=== PATIENT | male | born 1975 | race Caucasian/White ===

== ENCOUNTER 2022-11-05 21:09 | Inpatient (IN) | payer OTHER, MEDICARE ==
[~2022-11-05] VITALS: Ht 170.2 cm; Wt 44.2 kg
[2022-11-05] MEDS ORDERED: NS 1,000 ML IV ONE (21:15)
[2022-11-05 21:33] LABS: ABG BASE EXCESS -4.7 (-2.0-2.0); ABG HCO3 18.9 MMOL/L (22.0-26.0); ABG O2 SATURATION 95.7 % (95.0-99.0); ABG PARTIAL PRESSURE O2 76.6 mmHg (75.0-100.0); ABG STANDARD HCO3 20.6 MMOL/L. (22.0-26.0); ABG TOTAL CO2 19.9 MMOL/L (22.0-29.0); ABG pH (ARTERIAL) 7.404 UNITS (7.350-7.450)
[2022-11-05 21:36] LABS: BASO # 0.1 10^3/uL (0.0-0.2); BASO % 0.6 % (0.0-1.0); EOS # 0.1 10^3/uL (0.0-0.5); EOS % 0.7 % (0.0-3.0); HEMATOCRIT 39.1 % (42.0-52.0); HEMOGLOBIN 12.6 g/dl (13.5-17.5); LYMPH # 1.8 10^3/uL (1.5-5.0); LYMPH % 13.6 % (24.0-44.0); MEAN CORPUSCULAR HEMOGLOBIN 29.2 pg (27.0-33.0); MEAN CORPUSCULAR HGB CONC 32.2 g/dl (32.0-36.5); MEAN CORPUSCULAR VOLUME 90.5 fl (80.0-96.0); MONO # 0.7 10^3/uL (0.0-0.8); MONO % 5.6 % (2.0-8.0); NEUTROPHILS # 10.3 10^3/uL (1.5-8.5); NEUTROPHILS % 78.5 % (36.0-66.0); PLATELET COUNT, AUTOMATED 293 10^3/uL (150-450); RED BLOOD COUNT 4.32 10^6/uL (4.30-6.10); WHITE BLOOD COUNT 13.1 10^3/uL (4.0-10.0)
[2022-11-05 21:48] LABS: INR 1.21; PROTHROMBIN TIME 14.9 SECONDS (12.5-14.5)
[2022-11-05 21:49] LABS: PARTIAL THROMBOPLASTIN TIME 29.6 SECONDS (24.8-34.2)
[2022-11-05 22:02] LABS: APPEARANCE, URINE HAZY (CLEAR); BACTERIA, URINE AUTO NEGATIVE (NEGATIVE); BILIRUBIN, URINE AUTO NEGATIVE (NEGATIVE); BLOOD, URINE BLOOD 1+ (NEGATIVE); COLOR, URINE YELLOW (YELLOW); GLUCOSE, URINE (UA) AUTO NEGATIVE (NEGATIVE); KETONE, URINE AUTO NEGATIVE (NEGATIVE); LEUKOCYTE ESTERASE, URINE AUTO 3+ (NEGATIVE); MUCUS, URINE SMALL (NEGATIVE); NITRITE, URINE AUTO NEGATIVE (NEGATIVE); PROTEIN, URINE AUTO 1+ mg/dL (NEGATIVE); RBC, URINE AUTO 31 /HPF (0-3); SPECIFIC GRAVITY URINE AUTO 1.012 (1.002-1.035); SQUAMOUS EPITHELIAL CELL UR AU 0 /HPF (0-6); UROBILINOGEN, URINE AUTO 0.2 mg/dL (0.0-2.0); WBC, URINE AUTO 70 /HPF (0-3)
[2022-11-05 22:31] LABS: RSV AMPLIFICATION NEGATIVE (NEGATIVE)
[2022-11-05 23:20] LABS: CK-MB VALUE MASS 2.4 NG/ML (<3.6)
[2022-11-05 23:21] LABS: LIPASE 13 U/L (12-53)
[2022-11-05 23:23] LABS: ALBUMIN 1.6 G/DL (3.2-5.2); ALKALINE PHOSPHATASE 104 U/L (46-116); ALT/SGPT 9 U/L (7.0-40); AST/SGOT 9 U/L (<34); BILIRUBIN,DIRECT 0.2 MG/DL (<0.4); BILIRUBIN,TOTAL 0.4 MG/DL (0.3-1.2); BLOOD UREA NITROGEN 86 MG/DL (9-23); CALCIUM LEVEL 7.8 MG/DL (8.5-10.1); CARBON DIOXIDE LEVEL 25 MMOL/L (20-31); CHLORIDE LEVEL 105 MMOL/L (98-107); CPK CREATINE PHOSPHOKINASE 17 U/L (46-171); CREATININE FOR GFR 3.04 MG/DL (0.70-1.30); GLOMERULAR FILTRATION RATE 23.6 (>60); GLUCOSE, FASTING 110 MG/DL (60-100); MB/CK RELATIVE INDEX 14.11 (< OR =4); POTASSIUM SERUM 4.3 MMOL/L (3.5-5.1); SODIUM LEVEL 139 MMOL/L (136-145); TOTAL PROTEIN 5.3 G/DL (5.7-8.2)
[2022-11-05 23:25] LABS: THYROID STIMULATING HORMONE 1.171 uIU/ML (0.55-4.78)
[2022-11-05 23:29] LABS: PROCALCITONIN 0.23 ng/ml
[2022-11-06 00:58] LABS: CK-MB VALUE MASS 2.5 NG/ML (<3.6)
[2022-11-06 00:59] LABS: MB/CK RELATIVE INDEX 16.66 (< OR =4)
[2022-11-06] MEDS ORDERED: ACETAMINOPHEN TAB 650MG DOSE (2X325MG) PO PRN (01:35)
[2022-11-06] MEDS ORDERED: NS 1,000 ML IV SCH (02:00)
[2022-11-06] MEDS ORDERED: GLUCOSE 4GM CHEW TABLET PO PRN (02:10)
[2022-11-06] MEDS ORDERED: ATOR40TA75 PO (02:10)
[2022-11-06] MEDS ORDERED: METO5TAB2 PO (02:10)
[2022-11-06] MEDS ORDERED: TORS20TA2 PO (02:10)
[2022-11-06] MEDS ORDERED: COMBAER6 INH (02:10)
[2022-11-06] MEDS ORDERED: METO25TA PO (02:10)
[2022-11-06] MEDS ORDERED: METO1TAB32 PO (02:10)
[2022-11-06] MEDS ORDERED: LOPE2TAB12 PO (02:10)
[2022-11-06] MEDS ORDERED: ERGO500029 PO (02:10)
[2022-11-06] MEDS ORDERED: DEXTROSE 50% 50ML SYRINGE IV PRN (02:10)
[2022-11-06] MEDS ORDERED: JARD1TAB3 PO (02:10)
[2022-11-06] MEDS ORDERED: SPIR-10 PO (02:10)
[2022-11-06] MEDS ORDERED: SPIR1CAP INH (02:10)
[2022-11-06] MEDS ORDERED: GLUCAGON INJ 1MG VIAL SC PRN (02:10)
[2022-11-06] MEDS ORDERED: MED REC IN PROGRESS XX SCH (02:15)
[2022-11-06 02:32] LABS: HIV 1&2 SCREEN NEGATIVE (NEGATIVE)
[2022-11-06 03:04] LABS: HEMOGLOBIN A1c 5.2 % (4.0-6.0)
[2022-11-06] MEDS ORDERED: HOME MED LIST COMPLETE! XX SCH (06:15)
[2022-11-06 06:31] LABS: BARBITURATES URINE NEGATIVE (NEGATIVE); COCAINE METABOLITE URINE NEGATIVE (NEGATIVE); METHADONE URINE NEGATIVE (NEGATIVE)
[2022-11-06 06:32] LABS: AMPHETAMINES LEVEL URINE NEGATIVE (NEGATIVE); BENZODIAZEPINES URINE NEGATIVE (NEGATIVE); OPIATES URINE NEGATIVE (NEGATIVE); PHENCYCLIDINE URINE NEGATIVE (NEGATIVE)
[2022-11-06 06:42] LABS: CANNABINOIDS URINE POSITIVE (NEGATIVE)
[2022-11-06] MEDS: TIOTROPIUM INHALER/CAPSULE (SPIRIVA) INH SCH (07:22)
[2022-11-06] MEDS: COMBIVENT RESPIMAT 100-20MCG INHALER 4GM INH SCH ×4 (07:22→19:40)
[2022-11-06] MEDS: INSULIN LISPRO (NovoLOG) PER UNIT SC SCH ×4 (07:42→21:00)
[2022-11-06 08:53] LABS: HEMATOCRIT 38.1 % (42.0-52.0); HEMOGLOBIN 12.1 g/dl (13.5-17.5); MEAN CORPUSCULAR HEMOGLOBIN 29.1 pg (27.0-33.0); MEAN CORPUSCULAR HGB CONC 31.8 g/dl (32.0-36.5); MEAN CORPUSCULAR VOLUME 91.6 fl (80.0-96.0); PLATELET COUNT, AUTOMATED 250 10^3/uL (150-450); RED BLOOD COUNT 4.16 10^6/uL (4.30-6.10); WHITE BLOOD COUNT 11.6 10^3/uL (4.0-10.0)
[2022-11-06] MEDS ORDERED: METOPROLOL SUCC *XL* 25MG TAB (TopROL *XL*) PO SCH (09:00)
[2022-11-06 09:14] LABS: CALCIUM LEVEL 7.8 MG/DL (8.5-10.1); CREATININE FOR GFR 2.81 MG/DL (0.70-1.30); GLOMERULAR FILTRATION RATE 25.9 (>60); POTASSIUM SERUM 3.5 MMOL/L (3.5-5.1)
[2022-11-06] MEDS: HEPARIN SOD (PORCINE) 5000UNITS/ML 1ML VIAL/SYRINGE SC SCH ×2 (09:24→20:58)
[2022-11-06] MEDS ORDERED: ONDANSETRON 4MG 2ML VIAL IV PRN (11:30)
[2022-11-06] MEDS: PANTOPRAZOLE 40MG VIAL IV SCH (11:59)
[2022-11-06] MEDS: LR 1,000 ML IV SCH ×2 (11:59→20:58)
[2022-11-06 13:06] VITALS: BP 101/64; TEMP 97.5; O2SAT 100
[2022-11-06] MEDS: METOCLOPRAMIDE 5 MG TAB PO SCH ×2 (14:57→17:58)
[2022-11-06] MEDS: DOXYCYCLINE HYCLATE 100MG TABLET PO SCH ×2 (14:57→20:58)
[2022-11-06 18:00] VITALS: BP 112/74; TEMP 97.3; O2SAT 100
[2022-11-06] MEDS: ATORVASTATIN 20 MG TAB PO SCH (20:57)
[2022-11-06 21:00] VITALS: BP 101/69; TEMP 97.5; O2SAT 100
[2022-11-07] VITALS (9 sets, daily range): BP systolic 88–134; BP diastolic 51–84; TEMP 97.3–98.2; O2SAT 99–100
[2022-11-07] MEDS ORDERED: LACTATED RINGER'S 1000 ML IV ONE (02:00)
[2022-11-07] MEDS: COMBIVENT RESPIMAT 100-20MCG INHALER 4GM INH SCH ×4 (07:25→19:19)
[2022-11-07] MEDS: TIOTROPIUM INHALER/CAPSULE (SPIRIVA) INH SCH (07:25)
[2022-11-07 07:40] LABS: BASO % 0.3 % (0.0-1.0); EOS # 0.1 10^3/uL (0.0-0.5); EOS % 0.9 % (0.0-3.0); HEMATOCRIT 29.2 % (42.0-52.0); LYMPH # 0.9 10^3/uL (1.5-5.0); LYMPH % 8.1 % (24.0-44.0); MEAN CORPUSCULAR HEMOGLOBIN 29.5 pg (27.0-33.0); MEAN CORPUSCULAR HGB CONC 32.2 g/dl (32.0-36.5); MEAN CORPUSCULAR VOLUME 91.5 fl (80.0-96.0); MONO # 0.6 10^3/uL (0.0-0.8); MONO % 4.8 % (2.0-8.0); NEUTROPHILS # 9.9 10^3/uL (1.5-8.5); PLATELET COUNT, AUTOMATED 214 10^3/uL (150-450); RED BLOOD COUNT 3.19 10^6/uL (4.30-6.10); WHITE BLOOD COUNT 11.6 10^3/uL (4.0-10.0)
[2022-11-07 07:52] LABS: HEMOGLOBIN 9.4 g/dl (13.5-17.5)
[2022-11-07 07:55] LABS: MAGNESIUM LEVEL 1.3 MG/DL (1.8-2.4); PHOSPHORUS LEVEL 2.7 MG/DL (2.5-4.9)
[2022-11-07 07:57] LABS: CALCIUM LEVEL 7.5 MG/DL (8.5-10.1); CREATININE FOR GFR 2.35 MG/DL (0.70-1.30); GLOMERULAR FILTRATION RATE 31.8 (>60); POTASSIUM SERUM 3.6 MMOL/L (3.5-5.1)
[2022-11-07 08:47] LABS: C REACTIVE PROTEIN QUANTITATIV 6.2 MG/DL (<1.0)
[2022-11-07] MEDS: METOCLOPRAMIDE 5 MG TAB PO SCH ×3 (09:13→18:22)
[2022-11-07] MEDS: INSULIN LISPRO (NovoLOG) PER UNIT SC SCH ×4 (09:13→21:00)
[2022-11-07 09:38] LABS: PERCENT SATURATION 13.7 % (19.7-50.0)
[2022-11-07 09:40] LABS: FERRITIN 302.2 NG/ML (10.5-307.3); FOLATE 5.14 NG/ML (>5.4)
[2022-11-07] MEDS: PANTOPRAZOLE 40MG VIAL IV SCH (10:27)
[2022-11-07] MEDS: HEPARIN SOD (PORCINE) 5000UNITS/ML 1ML VIAL/SYRINGE SC SCH ×2 (10:27→20:03)
[2022-11-07] MEDS: ASPIRIN 81MG ENTERIC TABLET PO SCH (10:27)
[2022-11-07] MEDS: DOXYCYCLINE HYCLATE 100MG TABLET PO SCH ×2 (10:27→20:03)
[2022-11-07] MEDS: AUGMENTIN 875 MG TAB PO SCH ×2 (11:31→20:03)
[2022-11-07] MEDS: CLOPIDOGREL 75 MG TAB PO SCH (11:31)
[2022-11-07] MEDS: LR 1,000 ML IV SCH ×2 (11:50→13:10)
[2022-11-07] MEDS: MAG SULF 1GM/100ML (MAG RUN) 1 GM in IV 1 EA IV SCH ×4 (11:55→15:30)
[2022-11-07] MEDS: FOLIC ACID 1MG TAB PO SCH (11:56)
[2022-11-07 12:19] LABS: HEMOGLOBIN 10.8 g/dl (13.5-17.5)
[2022-11-07] MEDS: ATORVASTATIN 20 MG TAB PO SCH (20:03)
[2022-11-07] MEDS: METOPROLOL SUCC *XL* 12.5MG PER 1/2 TAB (TopROL *XL*) PO SCH (20:06)
[2022-11-08 05:43] VITALS: BP 90/60; TEMP 97.5; O2SAT 97
[2022-11-08] MEDS: LR 1,000 ML IV SCH (05:45)
[2022-11-08 07:10] LABS: BASO % 0.4 % (0.0-1.0); EOS # 0.2 10^3/uL (0.0-0.5); EOS % 2.1 % (0.0-3.0); HEMOGLOBIN 9.7 g/dl (13.5-17.5); LYMPH # 1.1 10^3/uL (1.5-5.0); LYMPH % 12.6 % (24.0-44.0); MEAN CORPUSCULAR HEMOGLOBIN 29.3 pg (27.0-33.0); MEAN CORPUSCULAR HGB CONC 32.3 g/dl (32.0-36.5); MEAN CORPUSCULAR VOLUME 90.6 fl (80.0-96.0); MONO # 0.6 10^3/uL (0.0-0.8); MONO % 6.2 % (2.0-8.0); NEUTROPHILS # 6.9 10^3/uL (1.5-8.5); NEUTROPHILS % 77.4 % (36.0-66.0); PLATELET COUNT, AUTOMATED 214 10^3/uL (150-450); RED BLOOD COUNT 3.31 10^6/uL (4.30-6.10); WHITE BLOOD COUNT 8.9 10^3/uL (4.0-10.0)
[2022-11-08] MEDS: COMBIVENT RESPIMAT 100-20MCG INHALER 4GM INH SCH ×4 (07:29→20:16)
[2022-11-08] MEDS: TIOTROPIUM INHALER/CAPSULE (SPIRIVA) INH SCH (07:29)
[2022-11-08] MEDS: INSULIN LISPRO (NovoLOG) PER UNIT SC SCH ×4 (07:30→19:54)
[2022-11-08 07:44] LABS: CALCIUM LEVEL 7.4 MG/DL (8.5-10.1); CREATININE FOR GFR 2.05 MG/DL (0.70-1.30); GLOMERULAR FILTRATION RATE 37.2 (>60); POTASSIUM SERUM 3.5 MMOL/L (3.5-5.1)
[2022-11-08 08:49] LABS: MAGNESIUM LEVEL 2.2 MG/DL (1.8-2.4)
[2022-11-08] MEDS: METOCLOPRAMIDE 5 MG TAB PO SCH ×3 (08:52→17:50)
[2022-11-08] MEDS: ASPIRIN 81MG ENTERIC TABLET PO SCH (08:52)
[2022-11-08] MEDS: FOLIC ACID 1MG TAB PO SCH (08:52)
[2022-11-08] MEDS: AUGMENTIN 875 MG TAB PO SCH ×2 (08:52→20:23)
[2022-11-08] MEDS: DOXYCYCLINE HYCLATE 100MG TABLET PO SCH ×2 (08:53→20:24)
[2022-11-08] MEDS: PANTOPRAZOLE 40MG VIAL IV SCH (08:53)
[2022-11-08] MEDS: CLOPIDOGREL 75 MG TAB PO SCH (08:53)
[2022-11-08] MEDS: HEPARIN SOD (PORCINE) 5000UNITS/ML 1ML VIAL/SYRINGE SC SCH ×2 (08:53→20:24)
[2022-11-08 09:50] VITALS: BP 96/62; TEMP 97.3; O2SAT 100
[2022-11-08] MEDS: LOPERAMIDE 2 MG CAPLET PO PRN ×2 (10:27→13:31)
[2022-11-08 14:00] VITALS: BP 98/60; TEMP 98.1; O2SAT 98
[2022-11-08 19:31] VITALS: BP 138/78; TEMP 97.9; O2SAT 100
[2022-11-08] MEDS: METOPROLOL SUCC *XL* 12.5MG PER 1/2 TAB (TopROL *XL*) PO SCH (20:23)
[2022-11-08] MEDS: ATORVASTATIN 20 MG TAB PO SCH (20:24)
[2022-11-09 02:30] VITALS: BP 118/60; TEMP 98.1; O2SAT 98
[2022-11-09 05:30] VITALS: BP 122/74; TEMP 98.1; O2SAT 99
[2022-11-09 06:35] LABS: BASO # 0.1 10^3/uL (0.0-0.2); BASO % 0.7 % (0.0-1.0); EOS # 0.1 10^3/uL (0.0-0.5); EOS % 1.6 % (0.0-3.0); HEMATOCRIT 32.4 % (42.0-52.0); HEMOGLOBIN 10.3 g/dl (13.5-17.5); LYMPH % 11.5 % (24.0-44.0); MEAN CORPUSCULAR HEMOGLOBIN 29.1 pg (27.0-33.0); MEAN CORPUSCULAR HGB CONC 31.8 g/dl (32.0-36.5); MEAN CORPUSCULAR VOLUME 91.5 fl (80.0-96.0); MONO # 0.4 10^3/uL (0.0-0.8); MONO % 4.9 % (2.0-8.0); NEUTROPHILS % 79.6 % (36.0-66.0); PLATELET COUNT, AUTOMATED 231 10^3/uL (150-450); RED BLOOD COUNT 3.54 10^6/uL (4.30-6.10); WHITE BLOOD COUNT 8.8 10^3/uL (4.0-10.0)
[2022-11-09 07:11] LABS: CALCIUM LEVEL 7.5 MG/DL (8.5-10.1); CREATININE FOR GFR 1.93 MG/DL (0.70-1.30); GLOMERULAR FILTRATION RATE 39.9 (>60); POTASSIUM SERUM 3.7 MMOL/L (3.5-5.1)
[2022-11-09] MEDS: INSULIN LISPRO (NovoLOG) PER UNIT SC SCH ×4 (07:28→20:42)
[2022-11-09] MEDS: TIOTROPIUM INHALER/CAPSULE (SPIRIVA) INH SCH (07:30)
[2022-11-09] MEDS: COMBIVENT RESPIMAT 100-20MCG INHALER 4GM INH SCH ×2 (07:30→11:34)
[2022-11-09] MEDS: LACTOBACILLUS ACIDOPHILUS CAP (BACID) PO SCH ×2 (08:00→17:06)
[2022-11-09] MEDS ORDERED: METAMUCIL (PSYLLIUM) PACKET PO SCH (09:00)
[2022-11-09] MEDS: METOCLOPRAMIDE 5 MG TAB PO SCH ×3 (09:37→17:06)
[2022-11-09] MEDS: DOXYCYCLINE HYCLATE 100MG TABLET PO SCH ×2 (09:37→21:00)
[2022-11-09] MEDS: ASPIRIN 81MG ENTERIC TABLET PO SCH (09:37)
[2022-11-09] MEDS: FOLIC ACID 1MG TAB PO SCH (09:37)
[2022-11-09] MEDS: AUGMENTIN 875 MG TAB PO SCH ×2 (09:37→21:00)
[2022-11-09] MEDS: CLOPIDOGREL 75 MG TAB PO SCH (09:38)
[2022-11-09] MEDS: PANTOPRAZOLE 40MG VIAL IV SCH (09:38)
[2022-11-09] MEDS: HEPARIN SOD (PORCINE) 5000UNITS/ML 1ML VIAL/SYRINGE SC SCH ×2 (09:38→21:01)
[2022-11-09 10:00] VITALS: BP 110/78; TEMP 97.5; O2SAT 100
[2022-11-09] MEDS: METAMUCIL (PSYLLIUM) PACKET PO SCH ×2 (11:52→21:00)
[2022-11-09] MEDS: LR 1,000 ML IV SCH ×3 (11:52→21:00)
[2022-11-09] MEDS ORDERED: COMBIVENT RESPIMAT 100-20MCG INHALER 4GM INH PRN (12:55)
[2022-11-09 14:00] VITALS: BP 118/76; TEMP 97.5; O2SAT 99
[2022-11-09] MEDS ORDERED: POTASSIUM CHLORIDE 10MEQ SR TABLET PO ONE (14:00)
[2022-11-09 18:00] VITALS: BP 140/88; TEMP 97.5; O2SAT 100
[2022-11-09 19:52] VITALS: BP 104/62; TEMP 98.1; O2SAT 100
[2022-11-09] MEDS: ATORVASTATIN 20 MG TAB PO SCH (21:00)
[2022-11-09] MEDS: METOPROLOL SUCC *XL* 12.5MG PER 1/2 TAB (TopROL *XL*) PO SCH (21:00)
[2022-11-10] VITALS (12 sets, daily range): BP systolic 73–118; BP diastolic 47–88; TEMP 97.5–97.9; O2SAT 100
[2022-11-10] MEDS: LR 1,000 ML IV SCH ×2 (05:09→18:10)
[2022-11-10 06:34] LABS: BASO # 0.1 10^3/uL (0.0-0.2); BASO % 0.6 % (0.0-1.0); EOS # 0.2 10^3/uL (0.0-0.5); HEMATOCRIT 32.4 % (42.0-52.0); HEMOGLOBIN 10.3 g/dl (13.5-17.5); LYMPH # 1.1 10^3/uL (1.5-5.0); LYMPH % 10.3 % (24.0-44.0); MEAN CORPUSCULAR HEMOGLOBIN 29.4 pg (27.0-33.0); MEAN CORPUSCULAR HGB CONC 31.8 g/dl (32.0-36.5); MEAN CORPUSCULAR VOLUME 92.6 fl (80.0-96.0); MONO # 0.7 10^3/uL (0.0-0.8); MONO % 6.7 % (2.0-8.0); NEUTROPHILS # 8.5 10^3/uL (1.5-8.5); NEUTROPHILS % 79.4 % (36.0-66.0); PLATELET COUNT, AUTOMATED 215 10^3/uL (150-450); WHITE BLOOD COUNT 10.7 10^3/uL (4.0-10.0)
[2022-11-10 06:55] LABS: CALCIUM LEVEL 7.3 MG/DL (8.5-10.1); CREATININE FOR GFR 1.81 MG/DL (0.70-1.30); MAGNESIUM LEVEL 1.7 MG/DL (1.8-2.4); POTASSIUM SERUM 4.5 MMOL/L (3.5-5.1)
[2022-11-10] MEDS: INSULIN LISPRO (NovoLOG) PER UNIT SC SCH ×4 (07:15→21:00)
[2022-11-10] MEDS: TIOTROPIUM INHALER/CAPSULE (SPIRIVA) INH SCH (07:19)
[2022-11-10] MEDS: METOCLOPRAMIDE 5 MG TAB PO SCH ×3 (07:40→17:00)
[2022-11-10] MEDS: LACTOBACILLUS ACIDOPHILUS CAP (BACID) PO SCH ×2 (07:40→17:00)
[2022-11-10 08:26] LABS: PROCALCITONIN 0.13 ng/ml
[2022-11-10] MEDS: ASPIRIN 81MG ENTERIC TABLET PO SCH (08:45)
[2022-11-10] MEDS: METAMUCIL (PSYLLIUM) PACKET PO SCH ×2 (08:45→20:22)
[2022-11-10] MEDS: DOXYCYCLINE HYCLATE 100MG TABLET PO SCH ×2 (08:46→20:23)
[2022-11-10] MEDS: AUGMENTIN 875 MG TAB PO SCH ×2 (08:46→20:23)
[2022-11-10] MEDS: LOPERAMIDE 2 MG CAPLET PO SCH ×4 (08:46→20:22)
[2022-11-10] MEDS: FOLIC ACID 1MG TAB PO SCH (08:46)
[2022-11-10] MEDS: MAGNESIUM OXIDE 400MG TAB (MAG-OX) PO SCH ×2 (08:46→20:22)
[2022-11-10] MEDS: CLOPIDOGREL 75 MG TAB PO SCH (08:46)
[2022-11-10] MEDS: HEPARIN SOD (PORCINE) 5000UNITS/ML 1ML VIAL/SYRINGE SC SCH ×2 (08:47→20:24)
[2022-11-10] MEDS ORDERED: MAG SULF 1GM/100ML (MAG RUN) 1 GM in IV 1 EA IV ONE (09:00)
[2022-11-10] MEDS: METOPROLOL SUCC *XL* 12.5MG PER 1/2 TAB (TopROL *XL*) PO SCH (20:23)
[2022-11-10] MEDS: ATORVASTATIN 20 MG TAB PO SCH (20:24)
[2022-11-11 01:30] VITALS: BP 82/58; TEMP 98.2; O2SAT 100
[2022-11-11 05:00] VITALS: BP 86/58; TEMP 98.1; O2SAT 100
[2022-11-11 06:26] LABS: BASO # 0.1 10^3/uL (0.0-0.2); BASO % 0.6 % (0.0-1.0); EOS # 0.3 10^3/uL (0.0-0.5); EOS % 2.8 % (0.0-3.0); HEMATOCRIT 30.4 % (42.0-52.0); HEMOGLOBIN 9.7 g/dl (13.5-17.5); LYMPH # 1.2 10^3/uL (1.5-5.0); LYMPH % 13.7 % (24.0-44.0); MEAN CORPUSCULAR HEMOGLOBIN 29.3 pg (27.0-33.0); MEAN CORPUSCULAR HGB CONC 31.9 g/dl (32.0-36.5); MEAN CORPUSCULAR VOLUME 91.8 fl (80.0-96.0); MONO # 0.7 10^3/uL (0.0-0.8); MONO % 7.3 % (2.0-8.0); NEUTROPHILS # 6.7 10^3/uL (1.5-8.5); NEUTROPHILS % 74.5 % (36.0-66.0); PLATELET COUNT, AUTOMATED 197 10^3/uL (150-450); RED BLOOD COUNT 3.31 10^6/uL (4.30-6.10); WHITE BLOOD COUNT 8.9 10^3/uL (4.0-10.0)
[2022-11-11 06:51] LABS: CALCIUM LEVEL 7.2 MG/DL (8.5-10.1); CREATININE FOR GFR 1.78 MG/DL (0.70-1.30); GLOMERULAR FILTRATION RATE 43.8 (>60); POTASSIUM SERUM 4.7 MMOL/L (3.5-5.1)
[2022-11-11] MEDS: INSULIN LISPRO (NovoLOG) PER UNIT SC SCH ×2 (07:30→11:31)
[2022-11-11] MEDS: TIOTROPIUM INHALER/CAPSULE (SPIRIVA) INH SCH (07:36)
[2022-11-11] MEDS: LOPERAMIDE 2 MG CAPLET PO SCH ×2 (08:00→12:42)
[2022-11-11] MEDS: METAMUCIL (PSYLLIUM) PACKET PO SCH (08:00)
[2022-11-11] MEDS: LACTOBACILLUS ACIDOPHILUS CAP (BACID) PO SCH (08:00)
[2022-11-11] MEDS: CLOPIDOGREL 75 MG TAB PO SCH (08:00)
[2022-11-11] MEDS: ASPIRIN 81MG ENTERIC TABLET PO SCH (08:00)
[2022-11-11] MEDS: MAGNESIUM OXIDE 400MG TAB (MAG-OX) PO SCH (08:00)
[2022-11-11] MEDS: AUGMENTIN 875 MG TAB PO SCH (08:00)
[2022-11-11] MEDS: HEPARIN SOD (PORCINE) 5000UNITS/ML 1ML VIAL/SYRINGE SC SCH (08:00)
[2022-11-11] MEDS: FOLIC ACID 1MG TAB PO SCH (08:00)
[2022-11-11] MEDS: METOCLOPRAMIDE 5 MG TAB PO SCH ×2 (08:00→12:42)
[2022-11-11] MEDS: DOXYCYCLINE HYCLATE 100MG TABLET PO SCH (08:00)
[2022-11-11] MEDS ORDERED: ASPI81TAEC PO (09:07)
[2022-11-11] MEDS ORDERED: AMOX875T2 PO (09:07)
[2022-11-11] MEDS ORDERED: META1POW PO (09:07)
[2022-11-11] MEDS ORDERED: CLOP75TA2 PO (09:07)
[2022-11-11] MEDS ORDERED: RISATAB3 PO (09:07)
[2022-11-11] MEDS ORDERED: MAGN400T2 PO (09:07)
[2022-11-11 10:00] VITALS: BP 101/61; TEMP 97.9; O2SAT 96
[2022-11-11] MEDS ORDERED: JARD1TAB PO (10:11)
[2022-11-12 13:07] LABS: BODY FLUID CULTURE Not indicated. (.); LEGIONELLA ANTIGEN URINE Negative (Negative); ORGANISM ID Not indicated. (.); SPECIMEN SOURCE Urine (.); URINE STREP PNEUMONIAE ANTIGEN Negative (Negative)
== END 2022-11-11 14:43 | disposition home health service (06) | DRG 952 ==
LOC: M ED 21:09 → M ED INP 11-06 02:09 → ENRESERV 11-06 11:42 → M MSPAV 11-06 13:08
PROVIDERS: ADMIT Internal Medicine; ATTEND Internal Medicine
PROC: 0JBQ3ZZ Excision of Right Foot Subcutaneous Tissue and Fascia, Percutaneous Approach (ICD-10-PCS; principal; 2022-11-06)
DX: T87.53 Necrosis of amputation stump, right lower extremity (principal); I13.0 Hypertensive heart and chronic kidney disease with heart failure and stage 1 through stage 4 chronic kidney disease, or unspecified chronic kidney disease; J90 Pleural effusion, not elsewhere classified; K31.84 Gastroparesis; R64 Cachexia; E11.52 Type 2 diabetes mellitus with diabetic peripheral angiopathy with gangrene; E46 Unspecified protein-calorie malnutrition; N17.9 Acute kidney failure, unspecified; E11.43 Type 2 diabetes mellitus with diabetic autonomic (poly)neuropathy; I50.32 Chronic diastolic (congestive) heart failure; L89.302 Pressure ulcer of unspecified buttock, stage 2; N18.30 Chronic kidney disease, stage 3 unspecified; E11.22 Type 2 diabetes mellitus with diabetic chronic kidney disease; E11.69 Type 2 diabetes mellitus with other specified complication; E83.42 Hypomagnesemia; E87.20 Acidosis, unspecified; E78.5 Hyperlipidemia, unspecified; E86.0 Dehydration; I25.10 Atherosclerotic heart disease of native coronary artery without angina pectoris; J44.9 Chronic obstructive pulmonary disease, unspecified; J98.11 Atelectasis; K21.9 Gastro-esophageal reflux disease without esophagitis; K80.20 Calculus of gallbladder without cholecystitis without obstruction; R33.9 Retention of urine, unspecified; R62.7 Adult failure to thrive; Z95.1 Presence of aortocoronary bypass graft; T87.43 Infection of amputation stump, right lower extremity; T87.81 Dehiscence of amputation stump; M86.8X7 Other osteomyelitis, ankle and foot; R19.7 Diarrhea, unspecified; Z68.1 Body mass index [BMI] 19.9 or less, adult; Z87.891 Personal history of nicotine dependence; Y83.5 Amputation of limb(s) as the cause of abnormal reaction of the patient, or of later complication, without mention of misadventure at the time of the procedure

== ENCOUNTER 2022-12-25 23:06 | Inpatient (IN) | payer MEDICARE, OTHER ==
[~2022-12-25] VITALS: Ht 170.2 cm; Wt 62.8 kg
[~2022-12-25 23:06] MED LIST: AMOX875T2 PO; ASPI81TAEC PO; ATOR40TA75 PO; CLOP75TA2 PO; COMBAER6 INH; ERGO500029 PO; JARD1TAB PO; JARD1TAB3 PO; LOPE2TAB12 PO; MAGN400T2 PO; META1POW PO; METO1TAB32 PO; METO25TA PO; METO5TAB2 PO; RISATAB3 PO; SPIR-10 PO; SPIR1CAP INH; TORS20TA2 PO
[2022-12-25] MEDS ORDERED: EPINEPHrine 1MG/10ML SYRINGE 1.5IN As Ordered ONE (23:13)
[2022-12-25] MEDS ORDERED: MIDAZOLAM INJ 2MG/2ML VIAL IV ONE (23:15)
[2022-12-25] MEDS ORDERED: MIDAZOLAM 100MG/100ML-0.9%NACL 100 MG in IV 1 EA IV SCH (23:15)
[2022-12-25] MEDS ORDERED: ROCURONIUM BROMIDE 50MG/5ML VIAL IV ONE (23:15)
[2022-12-25] MEDS ORDERED: NS 1,000 ML IV ONE (23:20)
[2022-12-25] MEDS: NOREPINEPHRINE 4MG IN D5 250ML 4 MG in IV 1 EA IV SCH ×2 (23:28)
[2022-12-26] VITALS (41 sets, daily range): BP systolic 70–140; BP diastolic 46–93; TEMP 95.1–100; O2SAT 91–100
[2022-12-26 00:18] LABS: HEMOGLOBIN 9.3 g/dl (13.5-17.5); MEAN CORPUSCULAR HEMOGLOBIN 29.1 pg (27.0-33.0); MEAN CORPUSCULAR VOLUME 96.9 fl (80.0-96.0); PLATELET COUNT, AUTOMATED 331 10^3/uL (150-450); WHITE BLOOD COUNT 12.4 10^3/uL (4.0-10.0)
[2022-12-26 00:28] LABS: ABG BASE EXCESS -16.7 (-2.0-2.0); ABG HCO3 12.6 MMOL/L (22.0-26.0); ABG PARTIAL PRESSURE CO2 44.3 mmHg (35.0-45.0); ABG PARTIAL PRESSURE O2 200.8 mmHg (75.0-100.0); ABG STANDARD HCO3 11.7 MMOL/L. (22.0-26.0)
[2022-12-26 00:31] LABS: ABG pH (ARTERIAL) 7.072 UNITS (7.350-7.450)
[2022-12-26 00:33] LABS: LIPASE 13 U/L (12-53)
[2022-12-26 00:34] LABS: CK-MB VALUE MASS 9.9 NG/ML (<3.6)
[2022-12-26 00:35] LABS: ALBUMIN 1.2 G/DL (3.2-5.2); ALKALINE PHOSPHATASE 149 U/L (46-116); ALT/SGPT 19 U/L (7.0-40); AST/SGOT 43 U/L (<34); BILIRUBIN,DIRECT < 0.1 MG/DL (<0.4); BILIRUBIN,TOTAL 0.2 MG/DL (0.3-1.2); BLOOD UREA NITROGEN 34 MG/DL (9-23); CALCIUM LEVEL 7.1 MG/DL (8.5-10.1); CARBON DIOXIDE LEVEL 12 MMOL/L (20-31); CHLORIDE LEVEL 116 MMOL/L (98-107); CREATININE FOR GFR 1.68 MG/DL (0.70-1.30); GLOMERULAR FILTRATION RATE 46.9 (>60); GLUCOSE, FASTING 184 MG/DL (60-100); POTASSIUM SERUM 4.2 MMOL/L (3.5-5.1); SODIUM LEVEL 143 MMOL/L (136-145); TOTAL PROTEIN 5.1 G/DL (5.7-8.2)
[2022-12-26 00:40] LABS: INR 1.43
[2022-12-26 00:41] LABS: PARTIAL THROMBOPLASTIN TIME 38.5 SECONDS (24.8-34.2)
[2022-12-26 00:42] LABS: CPK CREATINE PHOSPHOKINASE 67 U/L (46-171); MB/CK RELATIVE INDEX 14.77 (< OR =4)
[2022-12-26] MEDS ORDERED: PIPERACILLIN/TAZOBACTAM SOD 4.5 GM in D5W MINI-BAG PLUS 50 ML IV ONE (00:55)
[2022-12-26] MEDS ORDERED: ISOVUE-370 76% 100ML VIAL As Ordered ONE (01:09)
[2022-12-26 01:11] LABS: EOSINOPHILS 1 % (0-3); LYMPHOCYTES 5 % (16-44); METAMYELOCYTES 3 % (0-0); MONOCYTES 2 % (0-5); MYELOCYTES 1 % (0-0); NEUTROPHILS 82 % (28-66)
[2022-12-26 01:12] LABS: PLATELET ESTIMATE NORMAL (NORMAL)
[2022-12-26] MEDS ORDERED: NS 1,000 ML in IV 1 EA IV ONE (02:10)
[2022-12-26] MEDS: NOREPINEPHRINE 4MG IN D5 250ML 4 MG in IV 1 EA IV SCH ×6 (02:38→11:26)
[2022-12-26 03:03] LABS: MAGNESIUM LEVEL 1.7 MG/DL (1.8-2.4)
[2022-12-26] MEDS ORDERED: MED REC CURRENTLY UNOBTAINABLE XX SCH (04:00)
[2022-12-26 04:02] LABS: CK-MB VALUE MASS 13.1 NG/ML (<3.6)
[2022-12-26 04:05] LABS: MB/CK RELATIVE INDEX 16.58 (< OR =4)
[2022-12-26] MEDS ORDERED: GLUCAGON INJ 1MG VIAL SC PRN (04:20)
[2022-12-26] MEDS ORDERED: propofoL 1,000 MG in IV 1 EA IV SCH (04:20)
[2022-12-26] MEDS ORDERED: GLUCOSE 4GM CHEW TABLET PO PRN (04:20)
[2022-12-26] MEDS ORDERED: DEXTROSE 50% 50ML SYRINGE IV PRN (04:20)
[2022-12-26] MEDS ORDERED: LR 1,000 ML IV SCH (04:40)
[2022-12-26 05:33] LABS: PROCALCITONIN 0.45 ng/ml
[2022-12-26 06:03] LABS: HEMATOCRIT 32.4 % (42.0-52.0); HEMOGLOBIN 9.9 g/dl (13.5-17.5); MEAN CORPUSCULAR HEMOGLOBIN 28.4 pg (27.0-33.0); MEAN CORPUSCULAR HGB CONC 30.6 g/dl (32.0-36.5); MEAN CORPUSCULAR VOLUME 92.8 fl (80.0-96.0); PLATELET COUNT, AUTOMATED 410 10^3/uL (150-450); RED BLOOD COUNT 3.49 10^6/uL (4.30-6.10); WHITE BLOOD COUNT 20.3 10^3/uL (4.0-10.0)
[2022-12-26 06:24] LABS: VENOUS BASE EXCESS -18.3 (-2.0-2.0); VENOUS HCO3 11.1 MMOL/L (23.0-27.0); VENOUS O2 SATURATION 96.6 % (60.0-80.0); VENOUS PARTIAL PRESSURE O2 103.4 mmHg (30.0-50.0); VENOUS PH 7.063 UNITS (7.330-7.430); VENOUS STANDARD HCO3 10.8 MMOL/L; VENOUS TOTAL CO2 12.4 MMOL/L (24.0-28.0)
[2022-12-26 06:27] LABS: ALBUMIN 1.1 G/DL (3.2-5.2); BILIRUBIN,TOTAL 0.3 MG/DL (0.3-1.2); CALCIUM LEVEL 7.2 MG/DL (8.5-10.1); CREATININE FOR GFR 1.75 MG/DL (0.70-1.30); GLOMERULAR FILTRATION RATE 44.7 (>60); POTASSIUM SERUM 3.4 MMOL/L (3.5-5.1)
[2022-12-26] MEDS: IPRATROPIUM 0.5MG/ALBUTEROL 2.5MG INH SOL UD 3ML (DUONEB) NEB SCH ×3 (08:00→20:04)
[2022-12-26] MEDS: PIPERACILLIN/TAZOBACTAM SOD 4.5 GM in D5W MINI-BAG PLUS 50 ML IV SCH ×3 (09:24→19:40)
[2022-12-26] MEDS: INSULIN LISPRO (NovoLOG) PER UNIT SC SCH ×3 (09:25→17:59)
[2022-12-26] MEDS: HEPARIN SOD (PORCINE) 5000UNITS/ML 1ML VIAL/SYRINGE SC SCH ×3 (09:26→22:15)
[2022-12-26] MEDS: KCL 20MEQ IN 100ML SWI (KRUN) 20 MEQ in IV 1 EA IV SCH ×6 (09:27→11:39)
[2022-12-26] MEDS: PANTOPRAZOLE 40MG VIAL IV SCH (09:27)
[2022-12-26 09:42] LABS: CK-MB VALUE MASS 19.5 NG/ML (<3.6)
[2022-12-26 09:46] LABS: MB/CK RELATIVE INDEX 21.91 (< OR =4)
[2022-12-26 10:07] LABS: ABG BASE EXCESS -15.3 (-2.0-2.0); ABG HCO3 10.8 MMOL/L (22.0-26.0); ABG O2 SATURATION 94.9 % (95.0-99.0); ABG PARTIAL PRESSURE CO2 26.7 mmHg (35.0-45.0); ABG PARTIAL PRESSURE O2 75.9 mmHg (75.0-100.0); ABG STANDARD HCO3 12.6 MMOL/L. (22.0-26.0); ABG TOTAL CO2 11.6 MMOL/L (22.0-29.0)
[2022-12-26 10:11] LABS: ABG pH (ARTERIAL) 7.225 UNITS (7.350-7.450)
[2022-12-26] MEDS ORDERED: ASPI-161 PO (11:24)
[2022-12-26] MEDS ORDERED: LOSA25TA13 PO (11:24)
[2022-12-26] MEDS ORDERED: ZINC220CA PO (11:24)
[2022-12-26] MEDS ORDERED: JARD1TAB PO (11:24)
[2022-12-26] MEDS ORDERED: CLOP75TA2 PO (11:24)
[2022-12-26] MEDS ORDERED: MAGN400C PO (11:28)
[2022-12-26] MEDS ORDERED: TORS20TA2 PO (11:28)
[2022-12-26] MEDS ORDERED: META1POW PO (11:28)
[2022-12-26] MEDS ORDERED: HOME MED LIST COMPLETE! XX SCH (11:30)
[2022-12-26] MEDS ORDERED: SODIUM BICARBONATE 75 MEQ in NS 0.45% 1,000 ML IV SCH (12:00)
[2022-12-26 14:57] LABS: ALBUMIN 1.1 G/DL (3.2-5.2); BILIRUBIN,TOTAL 0.2 MG/DL (0.3-1.2); CALCIUM LEVEL 7.2 MG/DL (8.5-10.1); CREATININE FOR GFR 1.81 MG/DL (0.70-1.30); POTASSIUM SERUM 4.6 MMOL/L (3.5-5.1); TOTAL PROTEIN 5.1 G/DL (5.7-8.2)
[2022-12-26] MEDS ORDERED: SODIUM BICARBONATE 8.4% INJ 50ML SYRINGE As Ordered ONE (15:36)
[2022-12-26] MEDS ORDERED: SODIUM BICARBONATE 8.4% INJ 50ML SYRINGE IV STA ×3 (15:37)
[2022-12-26] MEDS ORDERED: VASOPRESSIN INJ 20UNITS/ML 1ML VIAL As Ordered ONE (15:40)
[2022-12-26 15:50] LABS: VENOUS BASE EXCESS -11.5 (-2.0-2.0); VENOUS HCO3 14.9 MMOL/L (23.0-27.0); VENOUS O2 SATURATION 98.3 % (60.0-80.0); VENOUS PARTIAL PRESSURE CO2 35.7 mmHg (38.0-50.0); VENOUS PARTIAL PRESSURE O2 130.6 mmHg (30.0-50.0); VENOUS PH 7.239 UNITS (7.330-7.430); VENOUS STANDARD HCO3 15.3 MMOL/L
[2022-12-26] MEDS ORDERED: VASOPRESSIN INJ 20 UNITS in NS 499 ML IV SCH (16:00)
[2022-12-26] MEDS: LACRILUBE (AKWA TEARS) OPHTH OINT 3.5GM OU SCH ×2 (16:00→22:15)
[2022-12-26 16:27] LABS: ALBUMIN 1.2 G/DL (3.2-5.2); BILIRUBIN,TOTAL 0.3 MG/DL (0.3-1.2); CALCIUM LEVEL 6.9 MG/DL (8.5-10.1); CREATININE FOR GFR 1.82 MG/DL (0.70-1.30); GLOMERULAR FILTRATION RATE 42.7 (>60); POTASSIUM SERUM 4.8 MMOL/L (3.5-5.1); TOTAL PROTEIN 5.1 G/DL (5.7-8.2)
[2022-12-26] MEDS ORDERED: CALCIUM GLUCONATE 1,000 MG in D5W MINI-BAG PLUS 100 ML IV ONE (17:00)
[2022-12-26 17:51] LABS: MAGNESIUM LEVEL 1.3 MG/DL (1.8-2.4)
[2022-12-26] MEDS: SODIUM BICARBONATE 75 MEQ in NS 0.45% 1,000 ML IV SCH (18:40)
[2022-12-26] MEDS ORDERED: MIDAZOLAM INJ 2MG/2ML VIAL IV PRN (18:45)
[2022-12-26] MEDS ORDERED: MAG SULF 1GM/100ML (MAG RUN) 1 GM in IV 1 EA IV ONE ×2 (19:00→22:50)
[2022-12-26 22:40] LABS: BILIRUBIN,TOTAL 0.3 MG/DL (0.3-1.2); CREATININE FOR GFR 1.84 MG/DL (0.70-1.30); GLOMERULAR FILTRATION RATE 42.2 (>60); MAGNESIUM LEVEL 1.6 MG/DL (1.8-2.4); POTASSIUM SERUM 4.5 MMOL/L (3.5-5.1); TOTAL PROTEIN 4.7 G/DL (5.7-8.2)
[2022-12-26] MEDS: MAG SULF 1GM/100ML (MAG RUN) 1 GM in IV 1 EA IV SCH (23:05)
[2022-12-26] MEDS: VASOPRESSIN INJ 20 UNITS in NS 499 ML IV SCH (23:36)
[2022-12-27] VITALS (81 sets, daily range): BP systolic 50–204; BP diastolic 23–111; TEMP 98.8–99.7; O2SAT 81–100
[2022-12-27] MEDS: NOREPINEPHRINE 4MG IN D5 250ML 4 MG in IV 1 EA IV SCH ×8 (00:02→11:10)
[2022-12-27] MEDS: MAG SULF 1GM/100ML (MAG RUN) 1 GM in IV 1 EA IV SCH ×2 (00:08→01:13)
[2022-12-27] MEDS: INSULIN LISPRO (NovoLOG) PER UNIT SC SCH ×2 (00:08→06:00)
[2022-12-27] MEDS: SODIUM BICARBONATE 75 MEQ in NS 0.45% 1,000 ML IV SCH (00:23)
[2022-12-27] MEDS: IPRATROPIUM 0.5MG/ALBUTEROL 2.5MG INH SOL UD 3ML (DUONEB) NEB SCH ×2 (01:59→08:22)
[2022-12-27] MEDS: PIPERACILLIN/TAZOBACTAM SOD 4.5 GM in D5W MINI-BAG PLUS 50 ML IV SCH ×2 (02:09→09:19)
[2022-12-27] MEDS ORDERED: LR 1,000 ML IV SCH (05:00)
[2022-12-27] MEDS: HEPARIN SOD (PORCINE) 5000UNITS/ML 1ML VIAL/SYRINGE SC SCH (06:15)
[2022-12-27] MEDS: VASOPRESSIN INJ 20 UNITS in NS 499 ML IV SCH (07:26)
[2022-12-27 08:07] LABS: VENOUS BASE EXCESS -8.1 (-2.0-2.0); VENOUS HCO3 16.9 MMOL/L (23.0-27.0); VENOUS O2 SATURATION 95.5 % (60.0-80.0); VENOUS PARTIAL PRESSURE CO2 32.4 mmHg (38.0-50.0); VENOUS PARTIAL PRESSURE O2 84.1 mmHg (30.0-50.0); VENOUS PH 7.334 UNITS (7.330-7.430); VENOUS STANDARD HCO3 17.8 MMOL/L; VENOUS TOTAL CO2 17.8 MMOL/L (24.0-28.0)
[2022-12-27 08:13] LABS: BASO % 0.2 % (0.0-1.0); HEMOGLOBIN 8.6 g/dl (13.5-17.5); LYMPH # 1.9 10^3/uL (1.5-5.0); LYMPH % 9.5 % (24.0-44.0); MEAN CORPUSCULAR HEMOGLOBIN 28.8 pg (27.0-33.0); MEAN CORPUSCULAR HGB CONC 33.1 g/dl (32.0-36.5); MONO # 0.8 10^3/uL (0.0-0.8); MONO % 4.2 % (2.0-8.0); NEUTROPHILS # 16.8 10^3/uL (1.5-8.5); NEUTROPHILS % 85.6 % (36.0-66.0); PLATELET COUNT, AUTOMATED 292 10^3/uL (150-450); RED BLOOD COUNT 2.99 10^6/uL (4.30-6.10); WHITE BLOOD COUNT 19.7 10^3/uL (4.0-10.0)
[2022-12-27] MEDS ORDERED: EPINEPHrine INJ 1 MG/ML 1ML AMP As Ordered ONE ×2 (08:19→08:37)
[2022-12-27] MEDS ORDERED: SODIUM BICARBONATE 8.4% INJ 50ML SYRINGE As Ordered ONE (08:20)
[2022-12-27 08:45] LABS: BILIRUBIN,TOTAL 0.3 MG/DL (0.3-1.2); CREATININE FOR GFR 1.88 MG/DL (0.70-1.30); GLOMERULAR FILTRATION RATE 41.2 (>60); POTASSIUM SERUM 4.1 MMOL/L (3.5-5.1); TOTAL PROTEIN 4.5 G/DL (5.7-8.2)
[2022-12-27 08:47] LABS: THYROID STIMULATING HORMONE 1.844 uIU/ML (0.55-4.78)
[2022-12-27] MEDS ORDERED: EPINEPHrine HCL INJ 4 MG in D5W 996 ML IV SCH ×5 (09:00→13:00)
[2022-12-27] MEDS: EPINEPHrine HCL INJ 1 MG in D5W 240 ML IV SCH ×2 (09:11→13:23)
[2022-12-27] MEDS: LACRILUBE (AKWA TEARS) OPHTH OINT 3.5GM OU SCH (09:12)
[2022-12-27] MEDS: PANTOPRAZOLE 40MG VIAL IV SCH (09:19)
[2022-12-27 10:02] LABS: INR 1.69; PROTHROMBIN TIME 19.3 SECONDS (12.5-14.5)
[2022-12-27 10:04] LABS: PARTIAL THROMBOPLASTIN TIME 50.5 SECONDS (24.8-34.2)
[2022-12-27] MEDS ORDERED: HEPARIN SOD (PORCINE) 5000UNITS/ML 1ML VIAL/SYRINGE IV PRN (11:20)
[2022-12-27] MEDS ORDERED: PANTOPRAZOLE 40MG VIAL IV SCH (11:26)
[2022-12-27] MEDS ORDERED: HEPARIN DRIP 25,000 UNITS in IV 1 EA IV SCH (12:00)
[2022-12-27] MEDS ORDERED: EPINEPHrine HCL INJ 16 MG in D5W 984 ML IV SCH (12:00)
[2022-12-27] MEDS ORDERED: LORazepam 2 MG/ML 1ML VIAL IV PRN (13:15)
[2022-12-27] MEDS ORDERED: ATROPINE SULFATE 1% OPHTH SOLN 2ML BTL SL PRN (13:15)
[2022-12-27] MEDS ORDERED: SCOPOLAMINE 1MG TRANSDERMAL PATCH TOP PRN (13:15)
[2022-12-27] MEDS ORDERED: MORPHINE 2 MG/ML 1ML VIAL IV PRN (13:15)
== END 2022-12-27 13:53 | disposition expired | DRG 296 ==
LOC: M ED 23:06 → EDBD 23:06 → M ED INP 12-26 04:16 → M ICU 12-26 05:00
PROVIDERS: ADMIT Internal Medicine Pulmonary Disease; ATTEND Internal Medicine
DX: I46.9 Cardiac arrest, cause unspecified (principal); J96.00 Acute respiratory failure, unspecified whether with hypoxia or hypercapnia; G93.41 Metabolic encephalopathy; J69.0 Pneumonitis due to inhalation of food and vomit; D68.9 Coagulation defect, unspecified; N17.9 Acute kidney failure, unspecified; K92.2 Gastrointestinal hemorrhage, unspecified; E87.20 Acidosis, unspecified; I10 Essential (primary) hypertension; R57.0 Cardiogenic shock; D64.9 Anemia, unspecified; J43.9 Emphysema, unspecified; Z89.431 Acquired absence of right foot; R68.0 Hypothermia, not associated with low environmental temperature; E11.51 Type 2 diabetes mellitus with diabetic peripheral angiopathy without gangrene; Z79.899 Other long term (current) drug therapy; Z79.82 Long term (current) use of aspirin; K74.60 Unspecified cirrhosis of liver; Z66 Do not resuscitate; Z51.5 Encounter for palliative care